=== PATIENT | male | born 2000 | race Caucasian/White ===

== ENCOUNTER 2021-09-08 06:49 | Emergency (ER) | payer BC ==
[~2021-09-08] VITALS: Ht 182.9 cm; Wt 72.6 kg
[2021-09-08 07:00] VITALS: BP_SYST 132
[2021-09-08] MEDS ORDERED: KETOROLAC TROMETHAMINE 30 MG VIAL IM ONE (07:15)
[2021-09-08] MEDS ORDERED: HYDROmorphone 1 MG/ML INJ. CARTRIDGE IVP ONE ×3 (07:15→11:15)
[2021-09-08] MEDS ORDERED: NACL 0.9% 1,000 ML IV SCH (07:15)
[2021-09-08 07:25] LABS: BASOPHILS % (AUTO) 0.6 % (0.0-2.0); EOSINOPHILS # (AUTO) 0.2 K/uL (0.0-0.4); HEMATOCRIT 43.4 % (36-54); HEMOGLOBIN 14.4 g/dL (14.0-18.0); MEAN CORPUSCULAR HEMOGLOBIN 28 pg (27-31); MEAN CORPUSCULAR HGB CONC 33 % (32-36); MEAN CORPUSCULAR VOLUME 84 fL (79.0-98.0); MONOCYTES # (AUTO) 0.6 K/uL (0.0-1.0); MONOCYTES % (AUTO) 7.2 % (1.7-9.3); NEUTROPHILS # (AUTO) 4.2 K/uL (1.8-7.7); NEUTROPHILS % (AUTO) 52.2 % (40.0-70.0); PLATELET COUNT (AUTO) 270 K/uL (130-430); RED CELL DISTRIBUTION WIDTH 13.6 % (9.0-15.0); WHITE BLOOD COUNT (AUTO) 8.1 K/uL (4.8-10.8)
[2021-09-08 07:56] LABS: CREATININE 1.08 mg/dL (0.55-1.30); POTASSIUM 3.6 mmol/L (3.5-5.1)
[2021-09-08 07:58] LABS: ALBUMIN 4.1 g/dL (3.4-4.8); TOTAL BILIRUBIN 1.1 mg/dL (0.0-1.0)
[2021-09-08 08:22] LABS: BILIRUBIN,URINE NEGATIVE (NEGATIVE); BLOOD, URINE 3+ (NEGATIVE); COLOR,URINE BROWN (YELLOW); GLUCOSE,URINE NEGATIVE (NEGATIVE); KETONES,URINE TRACE (NEGATIVE); LEUKOCYTE ESTERASE ,URINE NEGATIVE (NEGATIVE); NITRITE, URINE NEGATIVE (NEGATIVE); PROTEIN URINE 2+ (NEGATIVE)
[2021-09-08 08:29] LABS: CLARITY/URINE HAZY (CLEAR)
[2021-09-08] MEDS ORDERED: KETOROLAC TROMETHAMINE 30 MG VIAL IVP ONE (08:30)
[2021-09-08] MEDS ORDERED: ONDA-8 TL ×2 (08:35→12:44)
[2021-09-08] MEDS ORDERED: OXYC-128 PO ×4 (08:35→12:44)
[2021-09-08 08:48] LABS: BACTERIA,URINE None Seen /HPF (None Seen); RBC,URINE >100 /HPF (0-3); WBC,URINE 0-3 /HPF (0-3)
[2021-09-08] MEDS ORDERED: ONDANSETRON HCL 4 MG/2 ML VIAL IVP ONE (10:15)
[2021-09-08] MEDS ORDERED: NACL 0.9% 1,000 ML IV ONE (10:15)
[2021-09-08 11:57] LABS: ERYTHROCYTE SEDIMENTATION RATE 3 MM/HR (0-15)
[2021-09-08 12:58] VITALS: BP_SYST 144
== END 2021-09-08 12:59 | disposition home or self-care (01) ==
LOC: SED 06:49
DX: N20.0 Calculus of kidney (principal); J45.909 Unspecified asthma, uncomplicated; Z79.899 Other long term (current) drug therapy
CPT/HCPCS: 36415; 74176; 76376; 80053; 81000; 83690; 85025; 85651; 96361; 96372; 96374; 96375; 96376; 99285; J1170; J1885; J2405; J7030

== ENCOUNTER 2023-06-21 00:43 | Emergency (ER) | payer BC ==
[~2023-06-21] VITALS: Ht 182.9 cm; Wt 79.4 kg
[~2023-06-21 00:43] MED LIST: ONDA-8 TL; OXYC-128 PO
[2023-06-21 00:50] VITALS: BP_SYST 133; PULSE 80; RESP 22; TEMP 99; O2SAT 99
[2023-06-21] MEDS ORDERED: MORPHINE 4 MG INJ. 4 MG/ML VIAL IVP ONE (01:15)
[2023-06-21] MEDS ORDERED: NACL 0.9% 1,000 ML IV ONE ×2 (01:15→02:15)
[2023-06-21] MEDS ORDERED: KETOROLAC TROMETHAMINE 30 MG VIAL IVP ONE (01:15)
[2023-06-21 01:53] LABS: BILIRUBIN,URINE NEGATIVE (NEGATIVE); BLOOD, URINE 1+ (NEGATIVE); CLARITY/URINE CLEAR (CLEAR); COLOR,URINE YELLOW (YELLOW); GLUCOSE,URINE NEGATIVE (NEGATIVE); KETONES,URINE TRACE (NEGATIVE); LEUKOCYTE ESTERASE ,URINE NEGATIVE (NEGATIVE); NITRITE, URINE NEGATIVE (NEGATIVE); PROTEIN URINE NEGATIVE (NEGATIVE)
[2023-06-21 02:00] LABS: BILIRUBIN,DIRECT 0.2 mg/dL (0.0-0.3); CALCIUM 8.5 mg/dL (8.4-11.0); CREATININE 1.14 mg/dL (0.55-1.30); POTASSIUM 3.9 mmol/L (3.5-5.1); TOTAL BILIRUBIN 1.3 mg/dL (0.0-1.0); TOTAL PROTEIN, SERUM 7.6 g/dL (6.4-8.3)
[2023-06-21 02:19] LABS: BASOPHILS # (AUTO) 0.1 K/uL (0.0-0.2); BASOPHILS % (AUTO) 0.6 % (0.0-2.0); EOSINOPHILS # (AUTO) 0.4 K/uL (0.0-0.4); EOSINOPHILS % (AUTO) 5.2 % (0.0-4.0); HEMATOCRIT 42.7 % (36-54); HEMOGLOBIN 14.8 g/dL (14.0-18.0); LYMPHOCYTES # (AUTO) 3.5 K/uL (1.0-5.5); LYMPHOCYTES % (AUTO) 40.5 % (20.5-51.5); MEAN CORPUSCULAR HEMOGLOBIN 29 pg (27-31); MEAN CORPUSCULAR HGB CONC 35 % (32-36); MEAN CORPUSCULAR VOLUME 84 fL (79.0-98.0); MONOCYTES # (AUTO) 0.7 K/uL (0.0-1.0); MONOCYTES % (AUTO) 8.4 % (1.7-9.3); NEUTROPHILS # (AUTO) 3.9 K/uL (1.8-7.7); NEUTROPHILS % (AUTO) 45.3 % (40.0-70.0); PLATELET COUNT (AUTO) 254 K/uL (130-430); RED CELL DISTRIBUTION WIDTH 13.7 % (9.0-15.0); WHITE BLOOD COUNT (AUTO) 8.5 K/uL (4.8-10.8)
[2023-06-21 02:29] LABS: BACTERIA,URINE RARE /HPF (None Seen); WBC,URINE 0-3 /HPF (0-3)
[2023-06-21] MEDS ORDERED: NAPR-690 PO (03:22)
[2023-06-21 03:43] VITALS: BP_SYST 133; PULSE 80; RESP 22; TEMP 99; O2SAT 99
== END 2023-06-21 07:00 | disposition home or self-care (01) ==
LOC: SED 00:43
DX: N20.0 Calculus of kidney (principal); R10.31 Right lower quadrant pain; J45.909 Unspecified asthma, uncomplicated; Z79.899 Other long term (current) drug therapy
CPT/HCPCS: 99285; 74176; 96374; 96361; 96375; 80076; 80048; 81001; 85025; 36415; 76376; 81000; 81015; J1885; J2270; J7030